=== PATIENT | female | born 1950 | race Caucasian/White ===

== ENCOUNTER → 2016-12-12 | Outpatient (CLI) | payer OTHER ==
--- NOTE | 2016-12-12 12:24 | MR ---
EXAMINATION TYPE: MR knee RT wo con DATE OF EXAM: 12/12/2016 8:17 AM COMPARISON: NONE HISTORY: rt knee piain TECHNIQUE: Multiplanar, multisequence imaging of the right knee is performed without IV contrast. FINDINGS: MEDIAL MENISCUS: Anterior and posterior horns are intact without tear. LATERAL MENISCUS: Anterior and posterior horns are intact without tear. CRUCIATE LIGAMENTS: The anterior and posterior cruciate ligaments are intact and unremarkable. COLLATERAL LIGAMENTS: Medial collateral ligament is intact. Lateral collateral ligament external port ion appears intact. There may be some mild increased signal within the medial portion of the lateral collateral ligament suggesting mild strain. EXTENSOR MECHANISM: Visualized quadriceps and patellar tendons are intact. EFFUSION: There is a small joint effusion. POPLITEAL CYST: No popliteal/chakraborty cyst. TRICOMPARTMENT SPACES: There is diffuse loss of the joint spaces of the medial and lateral compartmen ts. Patellofemoral joint space has milder narrowing. CARTILAGE: There is thinning of the articular cartilage within the medial and lateral compartments co mpatible with osteoarthritic degenerative change. BONE MARROW SIGNAL: No focal abnormal marrow signal is appreciated. OTHER: No additional significant abnormality is appreciated. IMPRESSION: 1. Osteoarthritic degenerative change greater in the medial and lateral compartments and the patellof emoral compartment. 2. Small joint effusion.
== END | disposition home or self-care (01) ==
LOC: RADMRIMAIN 07:42
PROVIDERS: ATTEND Orthopaedic Surgery
DX: M17.11 Unilateral primary osteoarthritis, right knee (principal); M25.461 Effusion, right knee

== ENCOUNTER → 2018-01-01 | Outpatient (CLI) | payer MEDICARE ==
--- NOTE | 2018-01-01 10:37 | MR ---
EXAMINATION TYPE: MR brain wo/w con DATE OF EXAM: 01/01/2018 COMPARISON: NONE HISTORY: 67-year-old female Migraines TECHNIQUE: Multiplanar, multisequence images of the brain and brainstem were acquired before and aft er administration of 6.5 mL IV Gadavist. Diffusion weighted imaging is performed. FINDINGS: No evidence for acute infarction, hemorrhage, mass, mass effect, midline shift, herniation, effacemen t of basal cisterns, or extra-axial fluid collection. The ventricles and sulci are age-appropriate. Major intracranial flow voids are intact. T2/FLAIR weighted sequences show moderate scattered burden of bright white matter change in the subco rtical and deep white matter regions of both vertebral hemispheres, more numerous in the bifrontal lo bes. There are approximately 35 in the right cerebral hemisphere and 15-20 in the left cerebral hemis phere. Largest focus is on the right measuring 8 mm. Midline structures demonstrate normal morphology. The craniocervical junction is normal. Post contrast images demonstrate no evidence of pathologic enhancement. Dural venous sinuses are pat ent. Mild mucosal thickening ethmoid air cells. Globes are intact. IMPRESSION: 1. Moderate burden of T2 bright white matter change, right greater than left, in a subcortical and de ep white matter location especially in the bifrontal lobes. Given the patient's history, foci of isch emic demyelination related to chronic migraines are considered. 2. No acute intracranial abnormality seen.
== END | disposition home or self-care (01) ==
LOC: RADMRIMAIN 07:26
PROVIDERS: ATTEND Family Medicine
DX: R90.89 Other abnormal findings on diagnostic imaging of central nervous system (principal); G43.109 Migraine with aura, not intractable, without status migrainosus
CPT/HCPCS: 82565; 70553; 36415; A9581

== ENCOUNTER → 2018-01-22 | Outpatient (CLI) | payer MEDICARE, OTHER ==
--- NOTE | 2018-01-22 12:32 | BD ---
EXAMINATION TYPE: Axial Bone Density DATE OF EXAM: 01/22/2018 COMPARISON: NONE CLINICAL HISTORY: Osteoporosis screening. Postmenopausal female. Height: 66 Weight: 139.4 FRAX RISK QUESTIONS: Alcohol (3 or more units per day): no Family History (Parent hip fracture): no Glucocorticoids (More than 3mos): no (Ex: prednisone, prednisolone, methylprednisolone, dexamethasone, and hydrocortisone). History of Fracture in Adulthood: yes Secondary Osteoporosis: 1. Type 1 Diabetes: no 2. Hyperthyroidism: no 3. Menopause before 45: no 4. Malnutrition: no 5. Chronic liver disease: no Rheumatoid Arthritis: no Current Tobacco Use: no RISK FACTORS HISTORY OF: Spine Fracture: upper spine When: age 42 Family History of Osteoporosis: no Active: yes Diet low in dairy products/other sources of calcium: yes Postmenopausal woman: age 54 Lost more than 2 inches in height since high school: no Frequent falls: no MEDICATIONS: blood pressure, cholesterol, topamax Additional History: EXAM MEASUREMENTS: Bone mineral densitometry was performed using the [employer] System. Bone mineral density as measured about the Lumbar spine is: ----- L1-L4(G/cm2): 0.948 T Score Values are as follows: ----- L2: -1.8 ----- L3: -1.5 ----- L4: -2.5 ----- L1-L4: -1.9 Bone mineral density has baseline Bone mineral density about the R hip (g/cm2): 0.778 Bone mineral density about the L hip (g/cm2): 0.808 T Score values are as follows: -----R Neck: -1.9 -----L Neck: -1.7 -----R Total: -1.6 -----L Total: -1.6 Bone mineral density has: baseline IMPRESSION: Osteopenia (T Score between -2.5 and -1). There is slightly increased risk of fracture and the patient may be considered for treatment. Re-Screen 2-5 years. NOTE: T-SCORE=SD OF THE YOUNG ADULT MEAN.
--- NOTE | 2018-01-23 11:29 | MM ---
Reason for exam: screening (asymptomatic). Last mammogram was performed 1 year and 8 months ago. History: Patient is postmenopausal. Benign left mammotome panel of the left breast, April 28, 2008. Took estrogen for 4 years 2 months beginning at age 54. Physical Findings: A clinical breast exam by your physician is recommended on an annual basis and results should be correlated with mammographic findings. MG Screening Mammo w CAD Bilateral CC and MLO view(s) were taken. Prior study comparison: May 23, 2016, bilateral MG screening mammo w CAD. May 27, 2013, bilateral digital screening mammo w/CAD. The breast tissue is heterogeneously dense. This may lower the sensitivity of mammography. No significant changes when compared with prior studies. ASSESSMENT: Benign, BI-RAD 2 RECOMMENDATION: Routine screening mammogram of both breasts in 1 year.
== END | disposition home or self-care (01) ==
LOC: RADMAMWWP 07:55
PROVIDERS: ATTEND Family Medicine
DX: Z12.31 Encounter for screening mammogram for malignant neoplasm of breast (principal); M85.80 Other specified disorders of bone density and structure, unspecified site; N95.1 Menopausal and female climacteric states
CPT/HCPCS: 77067; 77080

== ENCOUNTER → 2018-03-29 | Outpatient (CLI) | payer MEDICARE ==
[2018-03-29 11:32] LABS: Calcium 9.7 mg/dL (8.4-10.2); Potassium 4.3 mmol/L (3.5-5.1)
== END | disposition home or self-care (01) ==
LOC: LABWHC1 10:46
PROVIDERS: ATTEND Internal Medicine Interventional Cardiology
DX: I10 Essential (primary) hypertension (principal)
CPT/HCPCS: 36415; 80048

== ENCOUNTER 2018-05-11 11:04 | Emergency (ER) | payer MEDICARE ==
--- NOTE | 2018-05-11 12:30 | ED ---
General Adult HPI - General Chief complaint: Extremity Injury, Upper Stated complaint: Numbness in Fingers, pain in arm Time Seen by Provider: 05/11/18 11:19 Source: patient, RN notes reviewed Mode of arrival: ambulatory Limitations: no limitations - History of Present Illness Initial comments: 67-year-old female to the emergency room today with a chief complaint of left arm pain. Patient does admit that symptoms started 10 days ago. She states she feels mostly discomfort in the left elbow area. She states she is right- handed. 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 Patient denies any injury or trauma. She states that over the last 10 days symptoms seem to be increasing. She does have some numbness tingling going down to the fingertips on the left. She states she does feel some numbness on the right side as well at times. She states it's or positions seem to make the symptoms better and worse. She describes it as better when she is lying down and worse when she stands up or is seated straight up. Patient does admit that she's had some history of neck problems. She does admit that she's got a chiropractor also sounds therapist no improvement. She states she called the family doctor was advised coming here to the emergency room. Patient denies any recent fever, chills, shortness of breath, chest pain, back pain, abdominal pain, nausea or vomiting, dysuria or hematuria, constipation or diarrhea, headaches or visual changes, or any other complaints. - Related Data Previous Rx's Medication Instructions Recorded Ibuprofen [Motrin] 600 mg PO Q6HR PRN #30 day 05/11/18 Allergies Allergy/AdvReac Type Severity Reaction Status Date / Time No Known Allergies Allergy Verified 05/11/18 11:17 Review of Systems ROS Statement: Those systems with pertinent positive or pertinent negative responses have been documented in the HPI. ROS Other: All systems not noted in ROS Statement are negative. Past Medical History Past Medical History: Hyperlipidemia, Hypertension Additional Past Medical History / Comment(s): kidney stones History of Any Multi-Drug Resistant Organisms: None Reported Past Surgical History: Appendectomy, Cholecystectomy, Hysterectomy Additional Past Surgical History / Comment(s): lithotripsy Past Psychological History: No Psychological Hx Reported Smoking Status: Never smoker Past Alcohol Use History: None Reported Past Drug Use History: None Reported General Exam - General Exam Comments Initial Comments: General: The patient is awake and alert, in no distress, and does not appear acutely ill. Neck: The neck is supple, there is no tenderness or JVD. Cardiovascular: There is a regular rate and rhythm. No murmur, rub or gallop is appreciated. Respiratory: Lungs are clear to auscultation, respirations are non-labored, breath sounds are equal. No wheezes, stridor, rales, or rhonchi. Musculoskeletal: Normal appearance of the left arm no obvious deformity. Shows full range of motion. Does have some mild tenderness over the lateral epicondyle. Patient strength is 5/5. Sensations intact. Pulses equal bilaterally 2+. No tenderness to the cervical or thoracic spine. No step-off or deformity. Neurological: A&O x 3. CN II-XII intact, There are no obvious motor or sensory deficits. Coordination appears grossly intact. Speech is normal. Skin: Skin is warm and dry and no rashes or lesions are noted. Psychiatric: Normal mood and affect. Limitations: no limitations Course Vital Signs 05/11/18 11:10 Temperature 98.1 F Pulse Rate 72 Respiratory 18 Rate Blood Pressure 154/85 O2 Sat by Pulse 99 Oximetry Medical Decision Making - Medical Decision Making Case was discussed and seen by attending physician . Patient will be treated for consult will continue on anti-inflammatories. She is advised following up with family physician or orthopedics. Advised return if symptoms increase worsen. Disposition Clinical Impression: Lateral epicondylitis (tennis elbow) Disposition: HOME SELF-CARE Condition: Good Additional Instructions: Please continue to use anti-inflammatories. Please use forearm strap as discussed taking on and off every few hours for circulation. Please follow-up orthopedics/family physician if symptoms persist. Prescriptions: Ibuprofen [Motrin] 600 mg PO Q6HR PRN #30 day PRN Reason: Pain Is patient prescribed a controlled substance at d/c from ED?: No Referrals: Jori Breaux DO [Primary Care Provider] - 1-2 days Ross Huerta DO [Doctor of Osteopathic Medicine] - 1-2 days
[2018-05-11 12:46] VITALS: BP 138/74; PULSE 78; RESP 16; TEMP 97.8
== END 2018-05-11 12:45 | disposition home or self-care (01) ==
LOC: EC 11:04
DX: M77.12 Lateral epicondylitis, left elbow (principal); R20.0 Anesthesia of skin
CPT/HCPCS: 99283

== ENCOUNTER → 2018-05-24 | Outpatient (CLI) | payer MEDICARE ==
--- NOTE | 2018-05-24 21:50 | MR ---
EXAMINATION TYPE: MR cervical spine wo con DATE OF EXAM: 05/24/2018 COMPARISON: None HISTORY: Cervical disc disorder / Osteophyte: Pain down arm and in neck x 1 month TECHNIQUE: Multiplanar, multisequence images of the cervical spine were acquired. C2-C3: No evidence for degenerative disc disease. No disc bulge/herniation or protrusion. No Canal stenosis. Foramina are patent bilaterally. C3-C4: Mild disc bulge is present with anterior thecal sac contact. No AP spinal canal stenosis prese nt. Neural foramen are patent. C4-C5: There is a moderate size broad-based disc bulge centrally with moderate anterior thecal sac co mpression. Some increased signals within the left paracentral disc suggesting disc herniation or arnulfo lar tear. Disc has moderate anterior thecal sac compression and cord contact without cord deformity. Neural foramen are patent. C5-C6: There is loss of disc height to this level. Endplate changes have moderate anterior thecal sac flattening. Cord contact is present. Borderline spinal canal narrowing is present. Moderate bilatera l foraminal stenosis is present. C6-C7: Broad-based disc bulge has mild anterior thecal sac contact. This comes in close approximation with the spinal cord. No AP spinal canal stenosis is present. Moderate left foraminal stenosis is pr esent. C7-T1: Endplate changes and mild anterior thecal sac compression. No cord contact is evident. No spin al canal stenosis or neural foraminal stenosis is present. Cervical segments are intact. There is normal alignment. Cervical spinal cord is of normal signal. Craniovertebral junction relationships are within normal limits. IMPRESSION: 1. Left paracentral small disc herniation with broad moderate-sized disc bulge C3-4 with moderate ant erior thecal sac compression. Cord contact is evident without cord deformity or spinal canal stenosis . 2. Broad-based disc bulge C5-6 C6-7 with mild to moderate anterior thecal sac compression close appro ximation with spinal cord without stenosis.
== END | disposition home or self-care (01) ==
LOC: RADMRIMAIN 17:04
PROVIDERS: ATTEND Family Medicine
DX: M50.11 Cervical disc disorder with radiculopathy, high cervical region (principal)
CPT/HCPCS: 72141

== ENCOUNTER → 2019-05-20 | Outpatient (CLI) | payer MEDICARE ==
--- NOTE | 2019-05-20 15:54 | XR ---
EXAMINATION TYPE: XR KUB DATE OF EXAM: 05/20/2019 3:47 PM CLINICAL HISTORY: Nephrolithiasis and abdominal pain TECHNIQUE: Single supine KUB image of the abdomen is obtained. COMPARISON: None. FINDINGS: Multiple phleboliths are seen within the pelvis. Some of these are above the ischial spines and could represent distal ureteral calculi. A 4 mm calculus overlies the left renal shadow and left 12th rib. No calculi are seen overlying the right renal shadow. Cholecystectomy clips are noted. Mil d levoscoliosis of the thoracolumbar spine. Degenerative changes are seen in the lumbosacral junction and mild sclerosis of the femoral acetabular joints. Rounded densities overlying the iliac crests ar e likely within bowel related to ingested substances. No dilated large or small bowel. Air-fluid leve ls are seen within the right hemicolon indicative of colonic malabsorption. IMPRESSION: 1. Multiple probable phleboliths are seen within the pelvis however some of the pelvis and could rela te to calculi at the ureterovesicular junctions. Ultrasound could assess for hydronephrosis if there is further concern as no priors are available for comparison. 2. Curvilinear 4 mm calcification overlies the left renal shadow. No right-sided renal calculi. 3. Air-fluid levels within the nondilated right hemicolon relates to colonic malabsorption.
== END | disposition home or self-care (01) ==
LOC: RADXRMAIN 15:26
PROVIDERS: ATTEND Urology
DX: N28.89 Other specified disorders of kidney and ureter (principal)
CPT/HCPCS: 74018

== ENCOUNTER → 2019-05-27 | Outpatient (CLI) | payer MEDICARE ==
--- NOTE | 2019-05-27 13:02 | CT ---
EXAMINATION TYPE: CT abdomen pelvis wo con DATE OF EXAM: 05/27/2019 HISTORY: Rt flank pain, history of renal stones CT DLP: 716 mGycm. Automated Exposure Control for Dose Reduction was Utilized. TECHNIQUE: CT scan of the abdomen and pelvis is performed without oral or IV contrast. COMPARISON: NONE FINDINGS: Within the limitations of a non-contrast study, the following observations are made. LUNG BASES: No significant abnormality is appreciated. LIVER/GB: Cholecystectomy clips are seen. PANCREAS: No significant abnormality is seen. SPLEEN: No significant abnormality is seen. ADRENALS: No significant abnormality is seen. KIDNEYS: Central calcifications left kidney identified. Some are within calyces upper pole level for reference 3 mm coronal image 51 and 4 mm coronal image 47. Roughly 1.2 cm low dense lesion anteriorly upper pole right kidney coronal image 49 favor simple thin-walled cyst. There is 2 mm hyperdense foc us right kidney could reflect nonobstructing calculus coronal image 50. No hydronephrosis or obstruct ing ureteral calculi are evident bilaterally. No intraluminal calculus in poorly distended bladder. BOWEL: Diverticula in the sigmoid colon. No CT evidence for acute diverticulitis. Some scattered dive rticula in the left and transverse colon. No suspicious small or large bowel dilatation. Debris-fille d stomach suggests recent meal ingestion GENITAL ORGANS: Scattered pelvic phleboliths are seen bilaterally. Uterus is surgically absent marked ly atrophic. LYMPH NODES: No greater than 1cm abdominal or pelvic lymph nodes are appreciated. OSSEOUS STRUCTURES: Prominent Schmorl mode right superior L3 endplate. Moderate axial joint space los s both hips OTHER: Mild calcified plaque of the aorta. Probable 0.0 cm injection granuloma right gluteal region a xial image 132. IMPRESSION: Bilateral renal calculi more prominent left kidney without hydronephrosis or obstructing ureteral calculi clearly seen. Left-sided renal calculi are predominantly in the calyces.
== END | disposition home or self-care (01) ==
LOC: RADCTMAIN 11:53
PROVIDERS: ATTEND Urology
DX: N20.0 Calculus of kidney (principal)
CPT/HCPCS: 74176

== ENCOUNTER → 2019-07-31 | Outpatient (CLI) | payer MEDICARE ==
--- NOTE | 2019-08-01 10:56 | MM ---
Reason for exam: screening (asymptomatic). Last mammogram was performed 1 year and 6 months ago. History: Patient is postmenopausal. Benign left mammotome panel of the left breast, April 28, 2008. Took estrogen for 4 years 2 months beginning at age 54. Physical Findings: A clinical breast exam by your physician is recommended on an annual basis and results should be correlated with mammographic findings. MG 3D Screening Mammo W/Cad Bilateral CC and MLO view(s) were taken. Prior study comparison: January 22, 2018, bilateral MG screening mammo w CAD. May 23, 2016, bilateral MG screening mammo w CAD. The breast tissue is heterogeneously dense. This may lower the sensitivity of mammography. Stable benign calcifications. There is no discrete abnormality. No significant changes when compared with prior studies. ASSESSMENT: Benign, BI-RAD 2 RECOMMENDATION: Routine screening mammogram of both breasts in 1 year.
== END | disposition home or self-care (01) ==
LOC: RADMAMWWP 09:06
PROVIDERS: ATTEND Family Medicine
DX: Z12.31 Encounter for screening mammogram for malignant neoplasm of breast (principal)
CPT/HCPCS: 77063; 77067

== ENCOUNTER → 2022-09-22 | Outpatient (CLI) | payer MEDICARE ==
--- NOTE | 2022-09-23 07:18 | XR ---
EXAMINATION TYPE: XR KUB DATE OF EXAM: 09/22/2022 3:40 PM CLINICAL HISTORY: Left flank pain. History of kidney stones. TECHNIQUE: Two Upright KUB images of the abdomen are obtained. COMPARISON: Prior CT May 27, 2019. FINDINGS: There are 2 left renal calculi measuring near 6 mm in size upper to mid pole level and lowe r pole level. No definite right-sided nephrolithiasis. There is dystrophic calcification projecting o rodolfo the bilateral iliac crests. Roughly 10 mm calcification at L4 level appears to correspond to vasc ular calcification on CT in the right common iliac artery extending into internal iliac artery. Multiple cholecystectomy clips are redemonstrated. Scattered small bilateral pelvic phleboliths. Unde rlying levoconvex scoliosis centered at L2-L3 level. No free air. Some paucity of bowel gas. Visualiz ed gas seen in nondistended small and large bowel loops. IMPRESSION: Left-sided nephrolithiasis.
== END | disposition home or self-care (01) ==
LOC: RADXRMAIN 15:28
PROVIDERS: ATTEND Urology
DX: N20.0 Calculus of kidney (principal)
CPT/HCPCS: 74018

== ENCOUNTER → 2023-09-14 | Outpatient (CLI) | payer MEDICARE ==
[2023-09-14 15:27] LABS: Basophils # (A) 0.09 X 10*3/uL (0.00-0.10); Eosinophils % (A) 1.2 %; HCT 35.1 % (37.2-46.3); HGB 10.8 g/dL (12.0-15.0); Lymphocytes % (A) 39.5 %; MCH 29.6 pg (27.0-32.0); MCHC 30.8 g/dL (32.0-37.0); MCV 96.2 FL (80.0-97.0); Mean Platelet Volume 9.7 FL (9.5-12.2); Monocytes # (A) 0.65 X 10*3/uL (0.20-1.00); Monocytes % (A) 7.5 %; NRBC Per 100 WBC 0 X 10*3/uL (0.00-0.01); Neutrophils # (A) 4.34 X 10*3/uL (1.80-7.70); Neutrophils % (A) 50.5 %; Platelet Count 350 X 10*3/uL (140-440); RBC 3.65 X 10*6/uL (4.10-5.20); RDW 13.8 % (11.5-14.5); WBC 8.61 X 10*3/uL (4.50-10.00)
[2023-09-14 16:30] LABS: BUN/Creat Ratio 12.74 Ratio (12.00-20.00); Blood Urea Nitrogen 24.2 mg/dL (9.0-27.0); Calcium 9.7 mg/dL (8.7-10.3); Carbon Dioxide 17.7 mmol/L (21.6-31.8); Chloride 106 mmol/L (96-109); Glucose 97 mg/dL (70-110); Potassium 5.5 mmol/L (3.5-5.5); Sodium 138 mmol/L (135-145)
== END | disposition home or self-care (01) ==
LOC: LABPAT 12:01
PROVIDERS: ATTEND Urology
DX: Z01.812 Encounter for preprocedural laboratory examination (principal); N20.0 Calculus of kidney
CPT/HCPCS: 36415; 80048; 85025

== ENCOUNTER 2023-09-21 10:30 | Day surgery (SDC) | payer MEDICARE ==
--- NOTE | 2023-09-18 17:17 | P.GSHP ---
History of Present Illness H&P Date: 09/16/23 Chief Complaint: Recurrent UTI The patient is a 73-year-old white female who has been treated for recurrent E. coli UTIs. The infection has persisted despite prolonged courses of antibiotics. A CT scan in September 2022 showed a 6 mm left upper pole renal calculus and as well as a tiny left upper pole renal calculus as well as a small right lower pole calculus. There is no evidence of hydronephrosis. - Constitutional Constitutional: Denies chills, Denies fever - Gastrointestinal Gastrointestinal: Denies nausea, Denies vomiting - Genitourinary (Female) Genitourinary: Reports dysuria, Reports kidney stones, Denies flank pain, Denies hematuria Past Medical History Past Medical History: Hyperlipidemia, Hypertension Additional Past Medical History / Comment(s): kidney stones History of Any Multi-Drug Resistant Organisms: None Reported Past Surgical History: Appendectomy, Cholecystectomy, Hysterectomy Additional Past Surgical History / Comment(s): lithotripsy, Past Anesthesia/Blood Transfusion Reactions: No Reported Reaction Smoking Status: Never smoker - Past Family History Father Family Medical History: Cancer Additional Family Medical History / Comment(s): pancreatic Mother Family Medical History: Cancer, CVA/TIA, Myocardial Infarction ([place]) Additional Family Medical History / Comment(s): melanoma Sister(s) Family Medical History: Cancer, Myocardial Infarction ([place]) Additional Family Medical History / Comment(s): throat Medications and Allergies Home Medications Medication Instructions Recorded Confirmed Type Aspirin [Adult Low Dose Aspirin EC] 81 mg PO DAILY 09/15/23 09/15/23 History Co Q10 1 tab PO DAILY 09/15/23 09/15/23 History Metoprolol Tartrate 25 mg PO DAILY 09/15/23 09/15/23 History Rosuvastatin Calcium 5 mg PO HS 09/15/23 09/15/23 History Sulfamethoxazole/Trimethoprim 1 tab PO BID 09/15/23 09/15/23 History [Sulfamethoxazole-Tmp Ds Tablet] Thera Cran(Unk) 1 tab PO DAILY 09/15/23 09/15/23 History Topiramate 50 mg PO BID 09/15/23 09/15/23 History Vit D(Unk) 1 tab PO DAILY 09/15/23 09/15/23 History amLODIPine [Norvasc] 5 mg PO DAILY 09/15/23 09/15/23 History lisinopriL [Prinivil] 10 mg PO DAILY 09/15/23 09/15/23 History Allergies Allergy/AdvReac Type Severity Reaction Status Date / Time No Known Allergies Allergy Verified 09/15/23 11:41 Surgical - Exam - General well developed, well nourished, no distress - Neck no masses, trachea midline - Respiratory normal respiratory effort - Abdomen Abdomen: soft, no masses, no guarding, no rigid, no rebound - Psychiatric oriented to time, oriented to person, oriented to place, speech is normal, memory intact Results - Imaging CT scan - abdomen: report reviewed, image reviewed Assessment and Plan (1) Calculus of kidney Status: Acute Code(s): N20.0 - CALCULUS OF KIDNEY SNOMED Code(s): 13153064 Plan: I have explained to the patient that the cause of her persistent E. coli UTI is unclear. A possible cause is an infected renal calculus. In view of this, she will undergo cystoscopy, bilateral retrograde pyelograms, bilateral ureteroscopy with Holmium laser lithotripsy and stone basketing, bilateral ureteral stent insertion. The procedure has been reviewed in detail with the patient. She is aware of potential risks, which include anesthesia, bleeding, infection, ureteral injury, and inability to remove all calculi. She is also aware that her E. coli UTI may persist.
[~2023-09-21 10:30] MED LIST: DEXAMETHASONE SOD PHOSPHATE 4 MG/ML 1 ML VIAL IV ONE; LACTATED RINGERS 1,000 ML IV SCH; LIDOCAINE 1% (10MG/ML) FOR IV START INTRADERMA PRN; ONDANSETRON 4 MG/2 ML VIAL IVP ONE; droPERidol 5 MG/2 ML VIAL IVP ONE
--- NOTE | 2023-09-21 10:49 | XR ---
EXAMINATION TYPE: XR KUB DATE OF EXAM: 09/21/2023 Comparison: 09/22/2022 Clinical History: 73-year-old female N20.0 bilateral renal calculi Findings: A calcification on either side measuring 6 mm on the right and 4 mm on the left is demonstrated. Mult iple pelvic phleboliths. Nonobstructive bowel gas pattern. Mild overall stool burden. Cholecystectomy clips. Impression: Renal calculi measuring 6 mm on the right and 4 mm on the left. Multiple pelvic phlebolith.
[2023-09-21] MEDS ORDERED: SUCCINYLCHOLINE CHLORIDE 200 MG/10 ML VIAL IV ONE (11:41)
[2023-09-21] MEDS ORDERED: PHENYLEPHRINE-0.9% NACL SYG 1,000 MCG/10 ML SYRINGE ONE (11:41)
[2023-09-21] MEDS ORDERED: PROPOFOL 10 MG/ML 20 ML VIAL IV ONE (11:41)
[2023-09-21] MEDS ORDERED: ROCURONIUM 10 MG/ML (5 ML VIAL) IV ONE (11:41)
[2023-09-21] MEDS ORDERED: LIDOCAINE 1% INJ 10MG/ML (20 ML MDV) ONE (11:41)
[2023-09-21] MEDS ORDERED: fentaNYL (PF) 50 MCG/ML 2 ML AMP ONE (11:41)
[2023-09-21] MEDS ORDERED: GLYCOPYRROLATE 0.2 MG/ML 2 ML VIAL ONE (11:41)
[2023-09-21] MEDS ORDERED: ePHEDrine 50 MG/ML 1 ML VIAL ONE (11:41)
[2023-09-21] MEDS ORDERED: NEOSTIGMINE 1 MG/ML 10 ML VIAL ONE (11:41)
[2023-09-21] MEDS ORDERED: IOPAMIDOL-370 100ML BTL MISCELLANE ONE ×2 (12:41)
--- NOTE | 2023-09-21 13:30 | FL ---
EXAMINATION TYPE: FL guidance operating room Intraoperative/procedural fluoroscopic services were pro vided. Total fluoroscopy time is 34.4 seconds with a total of 20 submitted images to PACS. Please see the operative/procedural note for further details. DAP: 3.0702 Gycm2
[2023-09-21 13:36] VITALS: TEMP 97
--- NOTE | 2023-09-21 13:50 | P.OP ---
Date of Procedure: 09/21/23 Preoperative Diagnosis: Bilateral renal calculi Postoperative Diagnosis: Same Procedure(s) Performed: Cystoscopy, bilateral retrograde pyelogram, bilateral ureteroscopy with Holmium laser lithotripsy and stone basketing, bilateral ureteral stent insertion Anesthesia: FADUMO Surgeon: Cheo Vogel Estimated Blood Loss (ml): 5 IV fluids (ml): 600 Pathology: other (Renal calculus fragments, sent for chemical analysis) Condition: stable Disposition: PACU Indications for Procedure: The patient is a 73-year-old white female who has been treated for recurrent E. coli UTIs. The infection has persisted despite prolonged courses of antibiotics. A CT scan in September 2022 showed a 6 mm left upper pole renal calculus and as well as a tiny left upper pole renal calculus as well as a small right lower pole calculus. There was no evidence of hydronephrosis. Operative Findings: Bilateral renal calculi, approximately 6 mm each, fragmented and removed completely. Description of Procedure: The patient was taken to the operating room and placed in the dorsolithotomy position, with legs supported in Stanfodr stirrups. The external genitalia was prepped and draped sterilely. The 30 lens was used to introduce the 21-Omani Guido cystoscopic sheath through the urethra and into the bladder under direct vision. The bladder was examined in its entirety. Both ureteral orifices were normal anatomic location and configuration, and clear urine effluxed from both. No tumors or foreign bodies were seen. Using a 10 Omani cone-tip catheter, bilateral retrograde pyelograms were performed. The course and caliber of each ureter was normal, with no filling defects. There was no evidence of hydronephrosis. A left bifid renal pelvis was noted. A 0.038 inch Glidewire was passed through the cystoscope. The right ureteral orifice was cannulated, and the Glidewire was advanced up to the renal pelvis. The cystoscope was removed, and an 11/13-Omani ureteral access catheter was passed over the wire, up to the proximal ureter. The flexible ureteroscope was then passed through the ureteral access catheter sheath, up to the renal pelvis. Each calyx was examined. Within an upper pole calyx the mucosa appeared irregular, and small calcifications were seen suggesting that perhaps the mucosa had grown over a calculus. The 272 micron Holmium laser probe was passed through the ureteroscope, and lithotripsy was performed to break away the small calcifications. However, it was clear that these were tiny Jay Jay's plaques rather than a submucosal calculus. However, within a midpole calyx a 6 mm stone was identified. No calculi were seen in the remaining calyces. Laser lithotripsy was utilized to dust the pointed edges of the calculus, leaving a calculus small enough to remove via stone basketing. A 1.9 Omani nitinol basket was used to remove this calculus. It was saved and sent for chemical analysis. Pullout ureteroscopy showed no evidence of ureteral trauma. The Glidewire was advanced up to the right renal pelvis, and the ureteroscope was removed. The Glidewire was then backloaded into the cystoscope, which was passed into the bladder. A 24 cm, 4.8 Omani double-J ureteral stent was placed over the wire. Proper stent positioning was verified fluoroscopically and endoscopically. A 0.038 inch Glidewire was passed through the cystoscope. The left ureteral orifice was cannulated, and the Glidewire was advanced up to the renal pelvis. The cystoscope was removed, and an 11/13-Omani ureteral access catheter was passed over the wire, up to the proximal ureter. The flexible ureteroscope was then passed through the ureteral access catheter sheath, up to the renal pelvis. Each calyx was examined. Within an upper pole calyx, a tiny calculus was identified and removed with the stone basket. A larger calculus measuring approximately 6 mm was seen within an upper pole calyx. The 272 micron Holmium laser probe was passed through the ureteroscope, and lithotripsy was performed to break away the pointed edges of the calculus, leaving a calculus small enough to remove via stone basketing. A 1.9 Omani nitinol basket was used to remove this calculus. It was saved and sent for chemical analysis. The remaining calyces were inspected, and an additional tiny calculus was identified and removed via stone basketing. Once it was confirmed that all the left renal calculi had been removed, the ureteroscope was slowly withdrawn under direct vision. Pullout ureteroscopy showed no evidence of ureteral trauma. The Glidewire was advanced up to the right renal pelvis, and the ureteroscope was removed. The Glidewire was then backloaded into the cystoscope, which was passed into the bladder. A 24 cm, 4.8 Omani double-J ureteral stent was placed over the wire. Proper stent positioning was verified fluoroscopically and endoscopically. The bladder was emptied and the cystoscope removed. The patient tolerated the procedure well and was taken to the recovery room in stable condition. MUSIC ROCKS Report: Procedure Acuity: Elective Stone Size and Location: 6 mm, right midpole. 6 mm, left upper pole. Ureteral Dilation: No Ureteral Access Sheath Used: Yes Stone Sent for Analysis: Yes All Stones/Fragments Were Removed with a Basket: Yes Complications: No Preoperative Antibiotics Given: Yes Stent Placed: Yes If Stent Placed, Was String Left Attached: No If Stent Placed, When is it to be Removed: 1 week Discharge Medications: Toradol
[2023-09-21] MEDS: HYDROmorphone 0.5 MG/0.5 ML SYRINGE IVP PRN ×2 (13:57→14:07)
[2023-09-21] MEDS ORDERED: KETOROLAC 15 MG/ML 1 ML VIAL IVP ONE (14:01)
[2023-09-21] MEDS ORDERED: LACTATED RINGERS 1,000 ML IV ONE (14:29)
[2023-09-21 15:16] VITALS: RESP 14
[2023-09-21 15:48] VITALS: BP 94/61; PULSE 78
== END 2023-09-21 15:20 | disposition home or self-care (01) ==
LOC: OR 10:30
PROVIDERS: ATTEND Urology
DX: N20.0 Calculus of kidney (principal); E78.5 Hyperlipidemia, unspecified; K21.9 Gastro-esophageal reflux disease without esophagitis; I10 Essential (primary) hypertension; Z90.49 Acquired absence of other specified parts of digestive tract; Z90.710 Acquired absence of both cervix and uterus; Z98.890 Other specified postprocedural states; Z80.8 Family history of malignant neoplasm of other organs or systems; Z82.3 Family history of stroke; Z82.49 Family history of ischemic heart disease and other diseases of the circulatory system; Z79.899 Other long term (current) drug therapy; Z79.82 Long term (current) use of aspirin; Z87.442 Personal history of urinary calculi
CPT/HCPCS: 82365; 74018; 52356; C2625; C1758; J0330; J1100; J2710; J0690; J2405; J2001; J3010; J1885; J2704; J1170; Q9967; J1790; J2371

== ENCOUNTER → 2023-11-14 | Outpatient (CLI) | payer MEDICARE ==
--- NOTE | 2023-11-14 13:19 | US ---
EXAMINATION TYPE: US kidneys/renal and bladder DATE OF EXAM: 11/14/2023 COMPARISON: CT 09/23/2022 CLINICAL INDICATION: Female, 73 years old with history of N20.0 CALCULUS OF KIDNEY; Hx kidney stones, lithotripsy. EXAM MEASUREMENTS: Right Kidney: 9.7 x 5.7 x 5.4 cm Left Kidney: 10.7 x 4.7 x 5.2 cm Right Kidney: *Hypoechoic area seen upper pole: 2.5 x 1.7 x 1.6 cm. Left Kidney: Anechoic area seen lower pole: 1.4 x 1.2 x 1.0 cm. Question dilated lower collecting system? anechoic area= 2.2 x 1.2 x 0.9 cm. Bladder: Appears wnl Bilateral Jets seen: Yes IMPRESSION: 1. Cystlike areas within the bilateral kidneys. 2. There may be mild prominence of left lower renal pole collecting system.
== END | disposition home or self-care (01) ==
LOC: RADUSWWP 12:12
PROVIDERS: ATTEND Urology
DX: N20.0 Calculus of kidney (principal)
CPT/HCPCS: 76770

== ENCOUNTER → 2023-11-27 | Outpatient (CLI) | payer MEDICARE ==
--- NOTE | 2023-11-29 14:51 | MM ---
Reason for Exam: Screening (asymptomatic). Last mammogram was performed 1 year(s) and 8 month(s) ago. Patient History: Menarche at age 16. First Full-Term at age 26. Left ovary removed at age 28. Hysterectomy at age 28. Postmenopausal. Estrogen, starting at age 54 for 4 years, 2 months. 04/28/2008, Benign Core Biopsy on the left side. Risk Values: Marjan 5 year model risk: 1.7%. NCI Lifetime model risk: 4.7%. Prior Study Comparison: 01/22/2018 Bilateral Screening Mammogram, [facility]. 07/31/2019 Bilateral Screening Mammogram, [facility]. 04/13/2022 Bilateral MG screening mammo w CAD, [facility]. Tissue Density: The breasts are heterogeneously dense, which may obscure small masses. Findings: Analyzed By CAD. There is no suspicious group of microcalcifications or new suspicious mass in either breast. Benign-appearing calcifications. Overall Assessment: Benign, BI-RAD 2 Management: Screening Mammogram of both breasts in 1 year. . Patient should continue monthly self-breast exams. A clinical breast exam by your physician is recommended on an annual basis. This exam should not preclude additional follow-up of suspicious palpable abnormalities. Note on Marjan scores and lifetime risk: 1. A Marjan score greater than 3% is considered moderate risk. If this is the case, consider specialist referral to assess eligibility for a risk reducing agent. 2. If overall lifetime risk for the development of breast cancer is 20% or higher, the patient may qualify for future screening with alternating mammogram and breast MRI. Electronically signed and approved by: Duong Champion M.D. Radiolog[facility]
== END | disposition home or self-care (01) ==
LOC: RADMAMWWP 14:05
PROVIDERS: ATTEND Family Medicine
DX: Z12.31 Encounter for screening mammogram for malignant neoplasm of breast (principal); Z78.0 Asymptomatic menopausal state
CPT/HCPCS: 77063; 77067

== ENCOUNTER → 2023-11-30 | Outpatient (CLI) | payer MEDICARE ==
[2023-11-30 15:51] LABS: Chol/HDL Ratio 3.11 Ratio; LDL Cholesterol,Calculated 81.3 mg/dL (0.0-131.0)
== END | disposition home or self-care (01) ==
LOC: LABWHC1 10:08
PROVIDERS: ATTEND Internal Medicine Interventional Cardiology
DX: I10 Essential (primary) hypertension (principal); E78.5 Hyperlipidemia, unspecified
CPT/HCPCS: 36415; 80061